=== PATIENT | female | born 1955 | race Hispanic/Latino ===

== ENCOUNTER → 2018-09-03 | Outpatient (CLI) | payer MEDICARE, OTHER ==
--- NOTE | 2018-09-03 09:32 | Diagnostic Imaging Report ---
PROCEDURE:PELVIC ULTRASOUND COMPARISON:None. INDICATIONS:POSTMENOPAUSAL BLEEDING TECHNIQUE: Grayscale transverse and sagittal transabdominal imaging was obtained of the pelvis. FINDINGS: UTERUS: 6.4 x 3.1 x 5.2 cm. Uniform myometrial echotexture. ENDOMETRIUM: Poorly visualized. RIGHT OVARY: Poorly visualized. LEFT OVARY: Poorly visualized. There is no free fluid within the pelvis. No adnexal masses. CONCLUSION: Limited transabdominal pelvic ultrasound with poor visualization of the endometrial stripe and ovaries. Transvaginal pelvic ultrasound or pelvic MRI should be obtained for more sensitive evaluation of the endometrium in this patient with reported history of postmenopausal bleeding. Dictated by: Zack Mead M.D. on 09/03/2018 at 9:41 Electronically approved by: Zack Mead M.D. on 09/03/2018 at 9:41
--- NOTE | 2018-09-03 10:21 | Diagnostic Imaging Report ---
EXAM: DXA BONE DENSITY INDICATIONS: Postmenopausal COMPARISON: None. FINDINGS: Proximal left femur total bone mineral density (BMD) (g/cm2):0.871 Femur T-score (standard deviation relative to young adult mean BMD): Minus are 0.6 Femur Z-score (standard deviation relative to age-matched control group):0.6 Proximal left femur neck bone mineral density (BMD) (g/cm2):0.725 Femur T-score (standard deviation relative to young adult mean BMD): -1.1 Femur Z-score (standard deviation relative to age-matched control group):0.4 Lumbar bone mineral density (BMD) (g/cm2):0.881 Lumbar T-score (standard deviation relative to young adult mean BMD): -1.5 Lumbar Z-score (standard deviation relative to age-matched control group):0.2 Change since prior exam (%): Femur:Not applicable. Spine:Not applicable. Change since oldest prior exam (%): Femur:Not applicable. Spine:Not applicable. CONCLUSION: 1. Bone mineral density in the left femur is classified as osteopenia. Fracture risk is increased. 10 year major osteoporotic fracture risk 12% 2. Bone mineral density in the spine is classified as osteopenia. Fracture risk is increased. World Health Organization Classification: *The Z-score is provided for informational purposes. The T-score is preferable for clinical decisions. When comparing exams, a change of >4% is considered statistically significant. SUGGESTED RECOMMENDATIONS: Normal & Osteopenia:Consideration should be given to use of calcium supplementation, daily multiple vitamins and adequate exercise, as preventive measures against osteoporosis, if clinically indicated. Osteoporosis & Severe Osteoporosis:In addition to the above, consideration should be given to medical therapy against osteoporosis, if clinically indicated. Jose Delong M.D. Dictated by: Jose Delong M.D. on 09/03/2018 at 10:29 Electronically approved by: Jose Delong M.D. on 09/03/2018 at 10:29
--- NOTE | 2018-09-24 08:20 | Diagnostic Imaging Report ---
#[id number] - MGSCRBIL #BILATERAL DIGITAL SCREENING MAMMOGRAM WITH CAD: 09/03/2018 CLINICAL: Routine screening. No prior exams were available for comparison. Current study contains 4 films. There are scattered fibroglandular elements in both breasts. Current study was also evaluated with a Computer Aided Detection (CAD) system. There are benign calcifications in the right breast. No significant masses, calcifications, or other findings are seen in either breast. IMPRESSION: BENIGN There is no mammographic evidence of malignancy. A 1 year screening mammogram is recommended. The patient will be notified by letter of the results. Yash hassan/salud:09/23/2018 07:07:13 Deliverer Merchandise: Lorin URBINA)(Jaimie), [facility] letter sent: Normal Exam Mammogram BI-RADS: 2 Benign
== END ==
LOC: US 08:03
PROVIDERS: ATTEND Internal Medicine
DX: Z12.31 Encounter for screening mammogram for malignant neoplasm of breast (principal); M81.0 Age-related osteoporosis without current pathological fracture; N95.0 Postmenopausal bleeding
CPT/HCPCS: 76856; 77067; 77080

== ENCOUNTER → 2018-09-22 | Outpatient (CLI) | payer OTHER ==
--- NOTE | 2018-09-22 14:25 | Diagnostic Imaging Report ---
EXAM: Transabdominal and Transvaginal Pelvic Ultrasound INDICATION: Postmenopausal bleeding COMPARISON: None TECHNIQUE: Grayscale transverse and sagittal transabdominal and transvaginal images were obtained of the pelvis. Transvaginal imaging was medically necessary to better evaluate the endometrium and the adnexa. CLINICAL HISTORY: 63 year old A0; last menstrual period: 10 years ago. FINDINGS: Uterus Orientation: Normal Size: 5.7 x 2.6 x 4.6 cm, Normal Mass: None Cervix: Multiple both he and cysts are seen. The largest measures 1.3 cm. Endometrium: Thickness: 0.7 cm, prominent. Appearance: Homogeneous echotexture without focal thickening. Right ovary: Size: 1.9 x 1.5 x 1.2 cm Mass/Cyst: None Left ovary: Size: 1.9 x 1.3 x 1.4 cm Mass/Cyst: 0.9 cm left ovarian follicle Adnexa: Normal Cul-de-sac: No free fluid IMPRESSION: Prominent endometrium measuring 0.7 cm. Clinical correlation is advised. Multiple nabothian cysts. The largest measures 1.3 cm. 0.9 cm left ovarian follicle. Signed by: Dr. Darryl Abrams M.D. on 09/22/2018 2:22 PM
== END ==
LOC: US 12:24
PROVIDERS: ATTEND Internal Medicine
DX: N95.0 Postmenopausal bleeding (principal)
CPT/HCPCS: 76830

== ENCOUNTER → 2019-09-28 | Outpatient (CLI) | payer MEDICARE ==
--- NOTE | 2019-09-28 16:13 | Diagnostic Imaging Report ---
EXAM: US TRANSVAGINAL DATE: 09/28/2019 12:00 AM INDICATION: Pelvic pain COMPARISON: Pelvic ultrasound from 09/22/2018 FINDINGS: Transabdominal and transvaginal images are obtained of the pelvis. The uterus measures 5.9 x 2.6 x 5.1 cm. Again identified are nabothian cysts. The largest measures 0.8 x 1.0 x 1.0 cm and contains a small amount of internal echogenicity likely reflecting internal debris/hemorrhage. No solid focal intrauterine lesion is identified. There is a 1.1 x 0.7 x 1.4 cm anechoic lesion identified within the endometrium at the level of the uterine fundus which is stable from the prior examination. The remainder the endometrium is unremarkable measuring 1-2 mm in thickness. The right ovary measures 1.4 x 1.4 x 1.0 cm. The left ovary measures 1.2 x 1.1 x 1.3 cm. No abnormal adnexal mass is identified. No free fluid is visualized. IMPRESSION: Mildly complex nabothian cysts identified, not significantly changed from the prior examination. Nonspecific small cystic lesion identified along the endometrium at the level of the uterine fundus, unchanged in appearance from prior examinations. Further evaluation could be performed with dedicated pelvic MRI. Signed by: Dr. Aníbal Muniz MD on 09/28/2019 4:10 PM
--- NOTE | 2019-10-01 08:22 | Diagnostic Imaging Report ---
#[id number] - MGSCRBIL #BILATERAL DIGITAL SCREENING MAMMOGRAM WITH CAD: 09/28/2019 CLINICAL: Routine screening. Comparison is made to exam dated: 09/03/2018 mammogram - [facility]. Current study contains 4 films. The tissue of both breasts is predominantly fatty. Current study was also evaluated with a Computer Aided Detection (CAD) system. Benign appearing calcifications are noted bilaterally. No significant masses, calcifications, or other findings are seen in either breast. IMPRESSION: BENIGN There is no mammographic evidence of malignancy. A 1 year screening mammogram is recommended. The patient will be notified by letter of the results. ÁNGEL PETER M.D. ct/penrad:09/30/2019 16:24:02 Solution Design Engineer: Lorin PALMA(Jhony)(M), [facility] letter sent: Normal Exam Mammogram BI-RADS: 2 Benign
== END ==
LOC: MAMMO 13:20
PROVIDERS: ATTEND Internal Medicine
DX: Z12.31 Encounter for screening mammogram for malignant neoplasm of breast (principal); A09 Infectious gastroenteritis and colitis, unspecified
CPT/HCPCS: 76830; 76856; 77067